=== PATIENT | male | born 1960 | race Caucasian/White ===

== ENCOUNTER 2019-10-04 08:49 | Emergency (ER) | payer OTHER ==
[~2019-10-04] VITALS: Ht 177.8 cm; Wt 95.3 kg
--- NOTE | 2019-10-04 08:55 | NUR ---
ED Nurse Note: [facility] d/t nausea/vomiting x 1 at 0700. Pt is AOx2, VSS, NAD, ambulatory. Placed on bed, ERMD on bedside.
[2019-10-04 09:00] VITALS: BP 118/76
[2019-10-04] MEDS ORDERED: SIMVASTATIN10 MG ORAL (09:01)
[2019-10-04] MEDS ORDERED: CITALOPRAM20 MG/10 M ORAL (09:01)
[2019-10-04] MEDS ORDERED: FISH OIL CAP1000 MG ORAL (09:01)
[2019-10-04] MEDS ORDERED: IBUPROFEN600 MG ORAL (09:01)
[2019-10-04] MEDS ORDERED: MITIGARE0.6 MG PO (09:01)
--- NOTE | 2019-10-04 09:22 | NUR ---
ED Nurse Note: Obtained blood specimen; sent to labs.
--- NOTE | 2019-10-04 09:27 | NUR ---
ED Nurse Note: X-ray on bedside.
[2019-10-04 09:38] LABS: HEMATOCRIT 50.3 % (42.0-52.0); HEMOGLOBIN 17.4 G/DL (14.2-18.0); MEAN CORPUSCULAR VOLUME 90 FL (80-99); PLATELET COUNT 212 K/UL (150-450); RED BLOOD COUNT 5.56 M/UL (4.70-6.10); RED CELL DISTRIBUTION WIDTH 11.7 % (11.6-14.8); WHITE BLOOD COUNT 10.2 K/UL (4.8-10.8)
[2019-10-04 09:59] LABS: ANION GAP 11 mmol/L (5-15); BLOOD UREA NITROGEN 22 mg/dL (7-18); CALCIUM 9.7 MG/DL (8.5-10.1); CARBON DIOXIDE 28 MMOL/L (21-32); CHLORIDE 105 MMOL/L (98-107); CREATININE 1.4 MG/DL (0.55-1.30); POTASSIUM 3.8 MMOL/L (3.5-5.1); SODIUM 144 MMOL/L (136-145)
[2019-10-04 10:12] LABS: ALANINE AMINOTRANSFERASE 26 U/L (12-78); ALBUMIN 4.1 G/DL (3.4-5.0); ALKALINE PHOSPHATASE 135 U/L (46-116); ASPARTATE AMINO TRANSFERASE 18 U/L (15-37)
--- NOTE | 2019-10-04 11:08 | Emergency Room Report ---
History of Present Illness General Chief Complaint: Vomiting Source: Patient, EMS Present Illness HPI Patient was sent to emergency room with reports of vomiting episode this morning Patient himself denies any nausea Denies any chest pain or shortness of breath There is some underlying dementia Any history of present illness is limited There was no reports of fevers No reports of any diarrhea Patient at bedside reports that he feels well denies any pain denies any fevers Allergies: Coded Allergies: No Known Allergies (Unverified , 10/04/19) Patient History Past Medical History: see triage record Reviewed Nursing Documentation: PMH: Agreed; PSxH: Agreed Review of Systems All Other Systems: limited - Other than the ones mentioned in the history of present illness all others are reviewed however they do stay limited due to the patient's mental status Physical Exam Vital Signs Date Time Temp Pulse Resp B/P (MAP) Pulse Ox O2 Delivery O2 Flow Rate FiO2 10/04/19 08:50 99.3 94 18 118/76 (90) 94 Room Air Sp02 EP Interpretation: reviewed, normal General Appearance: well appearing, no apparent distress Head: normocephalic, atraumatic Eyes: bilateral eye PERRL, bilateral eye EOMI ENT: EOM grossly intact Neck: supple Respiratory: lungs clear, no respiratory distress, no retraction Cardiovascular #1: regular rate, rhythm Gastrointestinal: non tender, soft Musculoskeletal: normal inspection Neurologic: alert, other - Some underlying confusion and dementia Skin: no rash Lymphatic: no adenopathy Medical Decision Making Diagnostic Impression: Primary Impression: Vomiting ER Course Multiple differentials including but not limited to infectious process, bowel obstruction, cholecystitis Entertained patient had extensive blood work initiated Imaging of the abdomen does not show any obvious signs of volvulus or other obstructive process patient continues to do well in the emergency room Shift is noted on the differential as well raising the likelihood of likely infectious process Patient has soft abdomen and after prolonged observation is stable for close outpatient follow-up Labs Test 10/04/19 09:22 White Blood Count 10.2 K/UL (4.8-10.8) Red Blood Count 5.56 M/UL (4.70-6.10) Hemoglobin 17.4 G/DL (14.2-18.0) Hematocrit 50.3 % (42.0-52.0) Mean Corpuscular Volume 90 FL (80-99) Mean Corpuscular Hemoglobin 31.3 PG (27.0-31.0) Mean Corpuscular Hemoglobin Concent 34.6 G/DL (32.0-36.0) Red Cell Distribution Width 11.7 % (11.6-14.8) Platelet Count 212 K/UL (150-450) Mean Platelet Volume 5.2 FL (6.5-10.1) Neutrophils (%) (Auto) % (45.0-75.0) Lymphocytes (%) (Auto) % (20.0-45.0) Monocytes (%) (Auto) % (1.0-10.0) Eosinophils (%) (Auto) % (0.0-3.0) Basophils (%) (Auto) % (0.0-2.0) Differential Total Cells Counted 100 Neutrophils % (Manual) 93 % (45-75) Lymphocytes % (Manual) 4 % (20-45) Monocytes % (Manual) 3 % (1-10) Eosinophils % (Manual) 0 % (0-3) Basophils % (Manual) 0 % (0-2) Band Neutrophils 0 % (0-8) Platelet Estimate Adequate Platelet Morphology Normal Red Blood Cell Morphology Normal Sodium Level 144 MMOL/L (136-145) Potassium Level 3.8 MMOL/L (3.5-5.1) Chloride Level 105 MMOL/L (98-107) Carbon Dioxide Level 28 MMOL/L (21-32) Anion Gap 11 mmol/L (5-15) Blood Urea Nitrogen 22 mg/dL (7-18) Creatinine 1.4 MG/DL (0.55-1.30) Estimat Glomerular Filtration Rate 51.5 mL/min (>60) Glucose Level 133 MG/DL (74-106) Calcium Level 9.7 MG/DL (8.5-10.1) Total Bilirubin 1.0 MG/DL (0.2-1.0) Aspartate Amino Transf (AST/SGOT) 18 U/L (15-37) Alanine Aminotransferase (ALT/SGPT) 26 U/L (12-78) Alkaline Phosphatase 135 U/L (46-116) Total Protein 8.2 G/DL (6.4-8.2) Albumin 4.1 G/DL (3.4-5.0) Globulin 4.1 g/dL Albumin/Globulin Ratio 1.0 (1.0-2.7) Lipase 117 U/L (73-393) Other X-Ray Diagnostic Results Other X-Ray Diagnostic Results : X-Ray ordered: kub # of Views/Limited Vs Complete: 1 View Indication: Other - Vomiting EP Interpretation: Yes Interpretation: nonspecific bowel gas, no sbo, other - No foreign body Impression: No acute disease Electronically Signed by: Uli Poole DO Last Vital Signs Date Time Temp Pulse Resp B/P (MAP) Pulse Ox O2 Delivery O2 Flow Rate FiO2 10/04/19 09:00 94 18 Room Air 10/04/19 09:00 99.3 118/76 94 Status: improved Disposition: XFER SNF Condition: Improved Referrals: NOT CHOSEN IPA/MD,REFERRING (PCP) Additional Instructions: Please contact primary physician at the nursing facility, initiate bland diet and slowly progress, return to emergency room with any worsening symptoms Uli Poole DO Oct 04, 2019 11:08
--- NOTE | 2019-10-04 11:11 | NUR ---
ED Nurse Note: report given to anh bernal from [facility] that pt. is going back to their facility
--- NOTE | 2019-10-04 11:36 | Diagnostic Imaging Report ---
Indication: Abdominal pain Technique: Supine view of the abdomen Comparison: none Findings: Bowel gas pattern is unremarkable. Calcification in the right upper quadrant is noted, could represent a renal staghorn calculus. No unusual masses. Impression: No acute process Possible right renal staghorn calculus
[2019-10-04 12:04] VITALS: BP 108/62
--- NOTE | 2019-10-04 12:05 | NUR ---
ED Nurse Note: rechecked temp: 100.8. ERMD aware.
[2019-10-04 12:25] VITALS: BP 108/62
--- NOTE | 2019-10-04 12:25 | NUR ---
ER DISCHARGE NOTE: Patient is cleared to be discharged per ERMD, pt is aox3, on room air, with stable vital signs. pt was given dc and prescription instructions, pt was able to verbalize understanding, pt id band and iv site removed without complications. pt was picked up by [facility] returning to nursing facility; on a gurney accompanied by paramedics and POA.
== END 2019-10-04 12:25 ==
LOC: EDBD 08:49 → EMR 10:45
DX: R11.10 Vomiting, unspecified (principal); F03.90 Unspecified dementia, unspecified severity, without behavioral disturbance, psychotic disturbance, mood disturbance, and anxiety
CPT/HCPCS: 36415; 74018; 80053; 83690; 85007; 85025; Z7502; 99283